=== PATIENT | male | born 1970 | race Hispanic/Latino ===

== ENCOUNTER 2016-11-09 03:53 | Emergency (ER) | payer SELFPAY ==
[2016-11-09] MEDS ORDERED: Sodium Chloride 0.9% 1,000 ML ONE (04:34)
[2016-11-09] MEDS ORDERED: Dexamethasone 20 MG/5 ML VIAL ONE (04:34)
[2016-11-09 05:10] LABS: ALT (SGPT) 60 U/L (0-55); AST (SGOT) 35 U/L (5-34); Alkaline Phosphatase 62 U/L (40-150); Anion Gap 16 mmol/L (10-20); BUN (Urea Nitrogen) 11 mg/dL (8.9-20.6); Bilirubin, Total 0.8 mg/dL (0.2-1.2); CK (CPK) 618 U/L (30-200); Calc. Creatinine Clearance 0 mL/min (70-130); Calcium 9.1 mg/dL (7.8-10.44); Carbon Dioxide 23 mmol/L (22-29); Chloride 106 mmol/L (98-107); Estimated GFR-MDRD Greater than 90; Globulin 3.2 g/dL (2.4-3.5); Protein, Total 7.2 g/dL (6.0-8.3)
[2016-11-09 05:11] LABS: Troponin I Less than 0.010 ng/mL (< 0.028)
[2016-11-09 05:15] LABS: Hematocrit 50.3 % (42.0-52.0); White Blood Cell (WBC) Count 10.7 thou/uL (4.8-10.8)
[2016-11-09 05:16] LABS: Band 5 % (5-11); Neutrophil 36 % (42-75)
--- NOTE | 2016-11-09 08:17 | RAD ---
PORTABLE CHEST 1 VIEW: DATE: 11/09/16. TIME: 12:45 a.m. HISTORY: Syncope and cough. FINDINGS/IMPRESSION: The funk size is prominent. The lungs are expanded without confluent areas of consolidation, pneumo thorax, leeanna pulmonary edema, or pleural effusions. POS: OFF
--- NOTE | 2016-11-09 08:56 | CT ---
PRELIMINARY REPORT/[facility]/EMERGENCY AFTER HOURS PROCEDURE: EXAM: CT Head Without Intravenous Contrast. CLINICAL HISTORY: 46 years old, male; Signs and symptoms; Syncope and collapse; Additional info: Patient presents with cough that at times causes him to pass out, the cough has been present for several weeks, while the passing out just recently began in the last few days TECHNIQUE: Axial computed tomography images of the head/brain without intravenous contrast. EXAM DATE/TIME: 11/09/2016 4:48 AM COMPARISON: No relevant prior studies available. FINDINGS: Brain: Unremarkable. No hemorrhage. No significant white matter disease. No edema. Ventricles: Unremarkable. No ventriculomegaly. Bones/joints: Unremarkable. No acute fracture. Soft tissues: Unremarkable. Sinuses: Mild to moderate paranasal sinus mucosal disease. Mastoid air cells: Unremarkable as visualized. No mastoid effusion. IMPRESSION: No acute intracranial abnormality. Thank you for allowing us to participate in the care of your patient. Dictated and Authenticated by: Dany Rivero MD 11/09/2016 5:33 AM Central Time ([place] \T\ [place]) FINAL REPORT CT HEAD: TECHNIQUE: Multiple axial tomograms are obtained through the head without contrast. HISTORY: History is provided on preliminary report. FINDINGS/IMPRESSION: No evidence of acute intracranial abnormality. There is mucosal edema in the paranasal sinuses, especially prominent in the right maxillary sinus a nd both sphenoid sinuses. I am in agreement with the preliminary report. POS: PERLA
== END 2016-11-09 06:10 | disposition home or self-care (01) ==
LOC: NAV ERS 03:53
DX: R55 Syncope and collapse (principal); R05 Cough; F17.210 Nicotine dependence, cigarettes, uncomplicated; Z79.82 Long term (current) use of aspirin; Z79.899 Other long term (current) drug therapy
CPT/HCPCS: 70450; 71010; 80053; 82550; 82553; 84484; 85025; 93005; 96361; 96374; J1100; J7050

== ENCOUNTER 2016-12-07 15:23 | Emergency (ER) | payer SELFPAY ==
[2016-12-07] MEDS ORDERED: Lidocaine 1% 20 ML MDV ONE (16:32)
[2016-12-07] MEDS ORDERED: Adacel (T-DAP) 0.5 ML VIAL ONE (17:04)
== END 2016-12-07 17:16 | disposition home or self-care (01) ==
LOC: NAV ERS 15:23
DX: S61.240A Puncture wound with foreign body of right index finger without damage to nail, initial encounter (principal); W45.8XXA Other foreign body or object entering through skin, initial encounter; Z23 Encounter for immunization; F17.210 Nicotine dependence, cigarettes, uncomplicated
CPT/HCPCS: 90715; J2001